=== PATIENT | female | born 1995 | race African-American/Black ===

== ENCOUNTER 2024-04-11 12:37 | Emergency (ER) | payer BC ==
[~2024-04-11] VITALS: Ht 177.8 cm; Wt 78.0 kg
[2024-04-11 12:39] VITALS: O2SAT 100
[2024-04-11 12:42] VITALS: BP 127/86; PULSE 100; RESP 16; TEMP 36.4; O2SAT 100
[2024-04-11] MEDS: FAMOTIDINE 20MG/2ML VIAL IV ONE (13:28)
[2024-04-11] MEDS: KETOROLAC 30MG/ML VIAL IV ONE (13:28)
[2024-04-11] MEDS: ONDANSETRON HCL 4MG/2ML INJ IV ONE (13:28)
[2024-04-11] MEDS: LACTATED RINGERS 1,000 ML IV SCH ×2 (13:29)
[2024-04-11 13:59] LABS: BASOPHILS % 0.9 % (0.0-2.0); EOSINOPHILS % 0.6 % (0.0-5.0); HEMATOCRIT. 38.6 % (36.0-48.0); HEMOGLOBIN. 12.7 g/dL (12.0-16.0); LYMPHOCYTES % 37.3 % (20.0-50.0); MEAN CORPUSCULAR HEMOGLOBIN 30.5 pg (28.0-32.0); MEAN CORPUSCULAR VOLUME 92.4 fL (81.0-99.0); MEAN PLATELET VOLUME 8.6 fl (7.4-10.4); MONOCYTES % 5.2 % (2.0-8.0); PLATELET 246 x1000/uL (130-400); RED BLOOD CELL COUNT 4.17 mill/uL (4.2-5.4); RED CELL DISTRIBUTION WIDTH 13.3 % (11.6-14.6); WHITE BLOOD COUNT 4.5 x1000/uL (4.5-11.0)
[2024-04-11 14:21] LABS: CHLORIDE 104 mEq/L (98-107); POTASSIUM 3.6 mEq/L (3.5-5.1); SODIUM 139 mEq/L (136-145)
[2024-04-11 14:22] LABS: CARBON DIOXIDE 27 mEq/L (21-32)
[2024-04-11 14:23] LABS: CALCIUM 9.2 mg/dL (8.7-10.4)
[2024-04-11 14:24] LABS: HCG SCREEN NEGATIVE
[2024-04-11 14:27] LABS: CREATININE 0.8 mg/dL (0.6-1.0)
[2024-04-11 14:28] LABS: GLUCOSE 81 mg/dL (70-105); UREA NITROGEN BLOOD 9 mg/dL (9-23)
[2024-04-11 14:29] LABS: ALANINE AMINOTRANSFERASE 12 IU/L (10-49); ALBUMIN 4.4 g/dL (3.2-4.8); ASPARTATE AMINOTRANSFERASE 18 IU/L (<34)
[2024-04-11 14:30] LABS: BILIRUBIN DIRECT 0.2 mg/dL (<=3.0); BILIRUBIN TOTAL 0.9 mg/dL (0.1-1.0); PROTEIN TOTAL 7.2 g/dL (6.0-8.3)
[2024-04-11 14:51] LABS: CLARITY URINE CLEAR (CLEAR); COLOR URINE YELLOW (YELLOW); GLUCOSE URINE NEGATIVE (NEGATIVE); KETONES URINE NEGATIVE (NEGATIVE); LEUKOCYTE ESTERASE URINE NEGATIVE (NEGATIVE); NITRITE URINE NEGATIVE (NEGATIVE); OCCULT BLOOD URINE NEGATIVE (NEGATIVE); PROTEIN URINE NEGATIVE (NEGATIVE); SPECIFIC GRAVITY URINE 1.007 (1.005-1.030); UROBILINOGEN URINE 0.2 E.U./dL (0.2-1.0)
[2024-04-11] MEDS ORDERED: FAMO20TA8 MT (16:18)
[2024-04-11] MEDS ORDERED: NAPR-681 MT (16:18)
[2024-04-11] MEDS ORDERED: LOPE2CAP MT (16:18)
[2024-04-11] MEDS ORDERED: ONDA-239 PO (16:18)
== END 2024-04-11 16:28 | disposition home or self-care (01) ==
LOC: ER 12:37
DX: R10.13 Epigastric pain (principal); R11.2 Nausea with vomiting, unspecified; Z98.890 Other specified postprocedural states
CPT/HCPCS: 80076; 80048; 81003; 84703; 83690; 85025; 36415; 96361; 96374; 96375; 99284; J3490; J1885; J2405; Z7610